=== PATIENT | female | born 1970 | race Caucasian/White ===

== ENCOUNTER 2018-01-21 07:33 | Outpatient (CLI) | payer OTHER ==
--- NOTE | 2018-01-21 09:20 | CT ---
CONTRAST ENHANCED CT IMAGES ABDOMEN AND PELVIS: HISTORY: Abdominal pain, R10.9. FINDINGS: Contrast-enhanced CT images of the abdomen and pelvis were obtained. The lung bases are unremarkable. Some atelectatic change is seen in both lung bases. No evidence of effusions, pneumonia, or pneumothorax seen. No evidence of free intraperitoneal air is seen. The liver, spleen, pancreas, and adrenal glands are unremarkable. The gallbladder has been surgicall y removed. Both kidneys contain nonobstructing renal calculi more numerous on the right than on the left. Some of the calculi in the right kidney measure up to 5 mm. No dilated loops of small bowel seen. The colon demonstrates some mild mucosal thickening in some of the sigmoid and rectum. This may repr esent mild changes of colitis. No evidence of periaortic lymphadenopathy is seen. No evidence of pelvic lymphadenopathy seen. Osseous structures are intact. IMPRESSION: Nonobstructing bilateral renal calculi. POS: [facility]
[2018-01-21] MEDS ORDERED: Iopamidol 370 76% 100 ML VIAL ONE (14:34)
== END 2018-01-21 07:34 | disposition home or self-care (01) ==
LOC: CT 07:33
PROVIDERS: ATTEND Internal Medicine Gastroenterology
DX: R10.9 Unspecified abdominal pain (principal); N20.0 Calculus of kidney
CPT/HCPCS: 74177